=== PATIENT | female | born 1990 | race Caucasian/White ===

== ENCOUNTER 2018-04-07 11:35 | Emergency (ER) | payer OTHER ==
[~2018-04-07] VITALS: Ht 157.5 cm; Wt 79.0 kg
[~2018-04-07 11:35] MED LIST: CETI10TA24 PO; MOME13HF2 INH; MONT10TA6 PO; TIOT18CA INH; VENL75CA PO
[2018-04-07 11:36] VITALS: BP 119/55
== END 2018-04-07 12:07 | disposition home or self-care (01) ==
LOC: ED 12:05
DX: H66.91 Otitis media, unspecified, right ear (principal); H65.03 Acute serous otitis media, bilateral; J45.909 Unspecified asthma, uncomplicated
CPT/HCPCS: 99283